=== PATIENT | male | born 2000 | race African-American/Black ===

== ENCOUNTER 2022-05-15 14:54 | Emergency (ER) | payer MEDICAID ==
[~2022-05-15] VITALS: Ht 185.4 cm; Wt 80.0 kg
[2022-05-15 15:04] VITALS: BP 132/88
== END 2022-05-15 21:35 | disposition left against medical advice (07) ==
LOC: ER 15:02
DX: Z53.21 Procedure and treatment not carried out due to patient leaving prior to being seen by health care provider (principal)
CPT/HCPCS: 99281